=== PATIENT | female | born 1970 | race Hispanic/Latino ===

== ENCOUNTER 2018-07-03 06:09 | Emergency (ER) | payer SELFPAY ==
[2018-07-03 07:27] LABS: Absolute Lymphocytes (CBC) 2.3 K/uL (0.7-4.9); Absolute Monocytes 0.8 K/uL (0.1-1.3); Absolute Neutrophil 5.9 K/uL (1.8-8.0); Basophils % 0.2 % (0-1.3); Eosinophils % 3.6 % (0-4.4); Hematocrit 37.2 % (36.0-45.0); Lymphocytes % 24.4 % (15.3-44.8); MCH 30.4 pg (27.0-35.0); MCV 89.8 fL (80-100); MPV 9.1 fL (7.6-11.3); Monocytes % 8.9 % (3.3-12.3); RBC Red Blood Cell Count 4.15 M/uL (3.86-4.86)
[2018-07-03 07:28] LABS: BUN Blood Urea Nitrogen 11 mg/dL (7-18); Bicarbonate 26 mmol/L (21-32); Glucose Level 86 mg/dL (74-106); Potassium 4.2 mmol/L (3.5-5.1); Sodium Level 140 mmol/L (136-145)
--- NOTE | 2018-07-03 08:03 | RAD REPORT ---
EXAM DESCRIPTION: CT - Maxillofacial W/Cont - 07/03/2018 7:48 am CLINICAL HISTORY: left sided facial pain and swelling<Reason For Exam>left sided facial pain and swe lling COMPARISON: No comparisons<Comparisons>No comparisons TECHNIQUE: Axial 2 millimeter thick images of the facial bones were obtained with sagittal and coron al reconstruction imaging. All CT scans are performed using dose optimization technique as appropriate and may include automated exposure control or mA/KV adjustment according to patient size. FINDINGS: The intracranial portion of the examination is unremarkable. Mastoid air cells are clear. Trace mucosal thickening in the left maxillary sinus. Sinuses are otherwise clear. No globe or orbita l content abnormality. No bone destructive process. There is dental decay in the teeth on the posterior left mandible and ma xilla. No periodontal abscess seen. Left-sided tissues are mildly edematous when compared with the ri ght. Parotid and submandibular glands are unremarkable. No abnormal lymphadenopathy. IMPRESSION: Edema changes are present in the soft tissues along the left-side mandible and maxilla. No abscess is identified. Dental decay is evident in the posterior teeth left-sided mandible and maxilla. No bone destructive p rocess seen.
--- NOTE | 2018-07-03 08:21 | EDPHYS ---
Physician Documentation [facility] Name: Alex Valenzuela Age: 47 yrs Sex: Female : 1970 Arrival Date: 07/03/2018 Time: 06:10 Bed 17 Private MD: ED Physician Zohaib Mckay HPI: 07/03 07:00 This 47 yrs old Female presents to ER via Ambulatory with complaints of Facial pm1 Pain-L Side. 07:00 Onset: The symptoms/episode began/occurred 2 day(s) ago. Associated signs and symptoms: pm1 Pertinent positives: swelling to face and eye, Pertinent negatives: fever, headache. Modifying factors: The patient symptoms are alleviated by nothing, the patient symptoms are aggravated by palpation. The patient has not experienced similar symptoms in the past. The patient has not recently seen a physician. 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 - Social history:: Smoking status: Patient uses tobacco products, smokes one-half pack cigarettes per day, Patient/guardian denies using alcohol, street drugs. - Ebola Screening: : No symptoms or risks identified at this time. ROS: 07:00 Constitutional: Negative for fever, chills, and weight loss. pm1 07:00 Eyes: Negative for injury, pain, redness, and discharge, ENT: Negative for injury, pain, and discharge, Neck: Negative for injury, pain, and swelling, Cardiovascular: Negative for chest pain, palpitations, and edema, Respiratory: Negative for shortness of breath, cough, wheezing, and pleuritic chest pain, Abdomen/GI: Negative for abdominal pain, nausea, vomiting, diarrhea, and constipation, Back: Negative for injury and pain, : Negative for injury, bleeding, discharge, and swelling, MS/Extremity: Negative for injury and deformity. 07:00 Neuro: Negative for headache, weakness, numbness, tingling, and seizure. 07:00 Skin: Positive for swelling, of the left cheek. Exam: 07:00 Constitutional: This is a well developed, well nourished patient who is awake, alert, pm1 and in no acute distress. Head/Face: Normocephalic, atraumatic. 07:00 Neck: Trachea midline, no thyromegaly or masses palpated, and no cervical lymphadenopathy. Supple, full range of motion without nuchal rigidity, or vertebral point tenderness. No Meningismus. Chest/axilla: Normal chest wall appearance and motion. Nontender with no deformity. No lesions are appreciated. Cardiovascular: Regular rate and rhythm with a normal S1 and S2. No gallops, murmurs, or rubs. Normal PMI, no JVD. No pulse deficits. Respiratory: Lungs have equal breath sounds bilaterally, clear to auscultation and percussion. No rales, rhonchi or wheezes noted. No increased work of breathing, no retractions or nasal flaring. Abdomen/GI: Soft, non-tender, with normal bowel sounds. No distension or tympany. No guarding or rebound. No evidence of tenderness throughout. Back: No spinal tenderness. No costovertebral tenderness. Full range of motion. Skin: Warm, dry with normal turgor. Normal color with no rashes, no lesions, and no evidence of cellulitis. MS/ Extremity: Pulses equal, no cyanosis. Neurovascular intact. Full, normal range of motion. Neuro: Awake and alert, GCS 15, oriented to person, place, time, and situation. Cranial nerves II-XII grossly intact. Motor strength 5/5 in all extremities. Sensory grossly intact. Cerebellar exam normal. Normal gait. 07:00 Eyes: Periorbital structures: appear normal, Pupils: no acute changes, equal, round, and reactive to light and accomodation, Extraocular movements: mild pain to left eye with lateral gaze per patient, Conjunctiva: no acute changes, Lids and lashes: appear normal, no acute changes. 07:00 ENT: External ear(s): are unremarkable, Ear canal(s): are normal, TM's: are normal, Nose: is normal, Mouth: is normal, no acute changes, Gums: reddened, on the upper left first molar, No trismus. Vital Signs: 06:22 BP 108 / 56; Pulse 87; Resp 16 S; Temp 98.7(O); Pulse Ox 99% on R/A; Weight 88 kg (R); bb Height 5 ft. 3 in. (160.02 cm) (R); Pain 8/10; 08:26 BP 112 / 68; Pulse 84; Resp 16; Pulse Ox 97% on R/A; iw 06:22 Body Mass Index 34.37 (88.00 kg, 160.02 cm) bb MDM: 06:28 Patient medically screened. pm1 08:19 Data reviewed: vital signs. Data interpreted: Pulse oximetry: on room air is 99 %. pm1 Interpretation: normal. Counseling: I had a detailed discussion with the patient and/or guardian regarding: the historical points, exam findings, and any diagnostic results supporting the discharge/admit diagnosis, lab results, radiology results, the need for outpatient follow up, a dentist, to return to the emergency department if symptoms worsen or persist or if there are any questions or concerns that arise at home. 07/03 06:44 Order name: CBC with Diff; Complete Time: 07:32 pm1 07/03 06:44 Order name: BMP; Complete Time: 07:32 pm1 07/03 06:44 Order name: CT Maxillofacial W/cont; Complete Time: 08:11 pm1 07/03 07:26 Order name: Urine Dipstick--Ancillary (enter results); Complete Time: 08:56 em1 07/03 07:26 Order name: Urine --Ancillary (enter results); Complete Time: 08:56 em1 07/03 06:44 Order name: IV Saline Lock; Complete Time: 06:46 pm1 07/03 07:18 Order name: Urine Test (obtain specimen); Complete Time: 07:25 pm1 07/03 07:18 Order name: Urine Dipstick-Ancillary (obtain specimen); Complete Time: 07:25 pm1 Administered Medications: 08:25 Drug: Clindamycin 600 mg Route: IVPB; Infused Over: 30 mins; Site: right antecubital; iw 09:00 Follow up: IV Status: Completed infusion iw Disposition: 07/03/18 08:20 Discharged to Home. Impression: Periapical abscess with sinus, Dental caries. - Condition is Stable. - Discharge Instructions: Dental Abscess, Dental Pain. - Prescriptions for Clindamycin HCl 300 mg Oral Capsule - take 1 capsule by ORAL route every 6 hours for 10 days; 40 capsule. Tylenol- Codeine #3 300-30 mg Oral Tablet - take 2 tablets by ORAL route every 6 hours As needed; 20 tablet. - Medication Reconciliation Form, Thank You Letter, Antibiotic Education, Prescription Opioid Use form. - Follow up: Emergency Department; When: As needed; Reason: Worsening of condition. Follow up: Private Physician; When: 2 - 3 days; Reason: Recheck today's complaints, Continuance of care, Re-evaluation by your physician. - Problem is new. - Symptoms have improved. Signatures: Dispatcher [employer] EDVicenta Vu RN RN Monique Shukla RN RN iw Kwame Henson NP PHYSICIAN ASSISTANT PRIMARY CARE pm1 Corrections: (The following items were deleted from the chart) 08:58 08:20 07/03/2018 08:20 Discharged to Home. Impression: Periapical abscess with iw sinusDental caries. Condition is Stable. Forms are Medication Reconciliation Form, Thank You Letter, Antibiotic Education, Prescription Opioid Use. Follow up: Emergency Department; When: As needed; Reason: Worsening of condition. Follow up: Private Physician; When: 2 - 3 days; Reason: Recheck today's complaints, Continuance of care, Re-evaluation by your physician. Problem is new. Symptoms have improved. pm1
--- NOTE | 2018-07-03 08:21 | ER ---
Nurse's Notes [facility] Name: Alex Valenzuela Age: 47 yrs Sex: Female : 1970 Arrival Date: 07/03/2018 Time: 06:10 Bed 17 Private MD: Diagnosis: Dental caries;Periapical abscess with sinus Presentation: 07/03 06:19 Presenting complaint: Patient states: she has been having left sided facial pain x 2 bb days which is intermittent now she has numbness in her mouth and swelling to left side of face. Transition of care: patient was not received from another setting of care. Onset of symptoms was July 01, 2018. Risk Assessment: Do you want to hurt yourself or someone else? Patient reports no desire to harm self or others. Initial Sepsis Screen: Does the patient meet any 2 criteria? No. Patient's initial sepsis screen is negative. Does the patient have a suspected source of infection? No. Patient's initial sepsis screen is negative. Care prior to arrival: None. 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 - Social history:: Smoking status: Patient uses tobacco products, smokes one-half pack cigarettes per day, Patient/guardian denies using alcohol, street drugs. - Ebola Screening: : No symptoms or risks identified at this time. Screenin:29 Abuse screen: Denies threats or abuse. Nutritional screening: No deficits noted. ea Tuberculosis screening: No symptoms or risk factors identified. Fall Risk None identified. Assessment: 06:24 General: Appears in no apparent distress. Behavior is calm, cooperative, appropriate ea for age. Pain: Complains of pain in left cheek Pain does not radiate. Pain currently is 7 out of 10 on a pain scale. Quality of pain is described as sharp, Aggravated by touch. Neuro: Level of Consciousness is awake, alert, obeys commands, Oriented to person, place, time, situation. Cardiovascular: Heart tones S1 S2 present Patient's skin is warm and dry. Respiratory: Airway is patent Respiratory effort is even, unlabored, Respiratory pattern is regular, symmetrical, Breath sounds are clear bilaterally. GI: No signs and/or symptoms were reported involving the gastrointestinal system. : No signs and/or symptoms were reported regarding the genitourinary system. EENT: Eyes swelling noted to left cheek. Reports She woke up with her left eye crusted over and left cheek swelling and pain when touched. Derm: Skin is pink, warm \T\ dry. Musculoskeletal: Circulation, motion, and sensation intact. 08:26 Reassessment: Patient appears in no apparent distress at this time. Patient and/or iw family updated on plan of care and expected duration. Pain level reassessed. Patient is alert, oriented x 3, equal unlabored respirations, skin warm/dry/pink. Vital Signs: 06:22 BP 108 / 56; Pulse 87; Resp 16 S; Temp 98.7(O); Pulse Ox 99% on R/A; Weight 88 kg (R); bb Height 5 ft. 3 in. (160.02 cm) (R); Pain 8/10; 08:26 BP 112 / 68; Pulse 84; Resp 16; Pulse Ox 97% on R/A; iw 06:22 Body Mass Index 34.37 (88.00 kg, 160.02 cm) bb ED Course: 06:10 Patient arrived in ED. ds1 06:22 Kwame Henson NP is PHCP. pm1 06:22 Zohaib Mckay MD is Attending Physician. pm1 06:22 Triage completed. bb 06:22 Arm band placed on Patient placed in an exam room, on a stretcher, on pulse oximetry. bb 06:24 Kiarra Baker, CELSO is Primary Nurse. ea 06:30 Patient has correct armband on for positive identification. Bed in low position. Call ea light in reach. 06:46 Inserted saline lock: 20 gauge in right antecubital area, using aseptic technique. ea Blood collected. 06:58 Report given to Monique HOUSTON. ea 07:[address] via wheelchair. [id number] 07:48 CT Maxillofacial W/cont In Process Unspecified. EDMS 08:57 No provider procedures requiring assistance completed. IV discontinued, intact, iw bleeding controlled, No redness/swelling at site. Pressure dressing applied. 08:58 Primary Nurse role handed off by Kiarra Baker RN iw 08:58 Monique Song, RN is Primary Nurse. iw Administered Medications: 08:25 Drug: Clindamycin 600 mg Route: IVPB; Infused Over: 30 mins; Site: right antecubital; iw 09:00 Follow up: IV Status: Completed infusion iw Outcome: 08:20 Discharge ordered by MD. pm1 08:57 Discharged to home ambulatory. iw 08:57 Condition: good 08:57 Discharge instructions given to patient, Instructed on discharge instructions, follow up and referral plans. medication usage, Demonstrated understanding of instructions, follow-up care, medications, Prescriptions given X 2. 08:58 Patient left the ED. iw Signatures: Dispatcher [employer] [facility] OreillyBecky fitzpatrick ds1 Vicenta Álvarez RN RN Monique Song RN RN Kwame Henson, [employer] WORKER pm1 Kiarra Baker RN RN ea Garcia, Jessica [id number]
[2018-07-03] MEDS ORDERED: CLINDAMYCIN 600MG/D5W 600 MG/50 ML BAG IV ONE (08:25)
[2018-07-03 08:55] LABS: Urine Blood NEGATIVE (NEG); Urine Glucose NEGATIVE (NEG); Urine Protein NEGATIVE (NEG); Urine Specific Gravity >1.030 (1.005-1.030)
== END 2018-07-03 08:58 | disposition home or self-care (01) ==
LOC: ER 06:09
DX: K04.6 Periapical abscess with sinus (principal); K02.9 Dental caries, unspecified; F17.210 Nicotine dependence, cigarettes, uncomplicated
CPT/HCPCS: 36415; 70487; 80048; 81003; 81025; 85025; 96365; 99284; Q9967